=== PATIENT | female | born 1950 | race Caucasian/White ===

== ENCOUNTER 2019-02-16 20:48 | Inpatient (IN) | payer MEDICARE, OTHER ==
[~2019-02-16] VITALS: Ht 157.5 cm; Wt 71.2 kg
[2019-02-16] MEDS ORDERED: ACET325C5 PO (21:12)
[2019-02-16] MEDS ORDERED: BISA-79 PO (21:12)
[2019-02-16] MEDS ORDERED: ENOX40DI SQ (21:12)
[2019-02-16] MEDS ORDERED: MAG30ORA PO (21:12)
[2019-02-16] MEDS ORDERED: HYDR-3326 PO (21:12)
[2019-02-16] MEDS ORDERED: ASPI-1094 PO (21:12)
[2019-02-16] MEDS ORDERED: CHLO25CA22 PO (21:12)
[2019-02-16] MEDS ORDERED: TEMA7.5C PO (21:12)
[2019-02-16] MEDS ORDERED: FOLI1TAB16 PO (21:13)
[2019-02-16] MEDS ORDERED: ESCI10TA PO (21:13)
[2019-02-16] MEDS ORDERED: MULT-1045 PO (21:13)
[2019-02-16] MEDS ORDERED: ATOR10TA PO (21:13)
[2019-02-16] MEDS ORDERED: THIA100T74 PO (21:13)
[2019-02-16] MEDS ORDERED: AMLO10TA4 PO (21:13)
[2019-02-16] MEDS ORDERED: METO25TA6 PO (21:13)
--- NOTE | 2019-02-16 21:20 | NUR ---
Medically cleared by ERMD
[2019-02-16] MEDS ORDERED: ACETAMINOPHEN 325 MG TABLET PO PRN (21:45)
[2019-02-16] MEDS ORDERED: MAGNESIUM HYDROXIDE 30 ML LIQUID UDC PO PRN (21:45)
[2019-02-16] MEDS ORDERED: MAG HYDROX/AL HYDROX/SIMETH 30 ML LIQUID UDC PO PRN (21:45)
--- NOTE | 2019-02-16 23:00 | NUR ---
received to care at 0, from the emergency room, on a 72 hour hold for gravely disabled, a transfer from [facility]. according to the hold, she lives at a senior care home, and has been making vague suicidal statements. she denied a plan, but stated to staff at [facility] that she was desperate, and uncertain how she can go on. upon arrival, she was calm and cooperative. denied suicidal ideation. was oriented to person, and place (a hospital). she was receptive to interview, and was assited to bed. as of 2299, she appears asleep. no distress noted. will continue to monitor closely.
[2019-02-16 23:11] VITALS: BP 113/53
[2019-02-17 07:30] VITALS: BP 109/67
[2019-02-17] MEDS ORDERED: LORAZEPAM 0.5 MG TABLET PO PRN (08:00)
[2019-02-17] MEDS ORDERED: TEMAZEPAM 15 MG CAPSULE PO PRN (08:00)
[2019-02-17] MEDS ORDERED: ESCITALOPRAM OXALATE 10 MG TABLET PO SCH (09:00)
[2019-02-17] MEDS ORDERED: MAG HYDROX/AL HYDROX/SIMETH 30 ML LIQUID UDC PO SCH (10:15)
[2019-02-17] MEDS ORDERED: BISACODYL 5 MG TABLET.DR PO PRN (10:15)
[2019-02-17] MEDS ORDERED: Medication Not On Formulary EA (Acetaminophen (Tylenol) 650 MG) PO SCH (10:15)
[2019-02-17] MEDS: ESCITALOPRAM OXALATE 10 MG TABLET PO SCH (10:39)
[2019-02-17] MEDS: METOPROLOL TARTRATE 25 MG TABLET PO SCH ×2 (10:40→20:36)
[2019-02-17 16:04] VITALS: BP 126/64
--- NOTE | 2019-02-17 16:11 | NUR ---
Initial Discharge Instructions: Patient reports that she lives in a 3-bedroom house alone. However, per chart, patient lives in a Senior Community [[address], [address] [place] [address]; [phone]]. Patient reports that she would like to return home upon discharge. SW attempted to contact patient's daughter, Lynette ([phone]) to discuss discharge planning and confirm information; however, there was no answer. SW left a message for a return call. Patient may benefit from placement. GRAYSON will continue to collaborate with pt, family, and MD regarding most appropriate discharge plans for this patient. SW will form a safe and proper discharge.
--- NOTE | 2019-02-17 16:16 | NUR ---
Firearms Report: SW completed and submitted [employer] Firearms Report for 5150 DTS certification.
[2019-02-17] MEDS: HYDROCODONE/APAP 5-325MG TABLET PO PRN (18:47)
[2019-02-17 20:00] VITALS: BP 130/57
[2019-02-17] MEDS: QUETIAPINE FUMARATE 25 MG TABLET PO SCH (20:36)
[2019-02-17] MEDS: ATORVASTATIN 10 MG TABLET PO SCH (20:36)
[2019-02-18 07:30] VITALS: BP 121/49
[2019-02-18] MEDS: AMLODIPINE 10 MG TABLET PO SCH (09:00)
[2019-02-18] MEDS: METOPROLOL TARTRATE 25 MG TABLET PO SCH ×2 (09:00→20:22)
[2019-02-18] MEDS ORDERED: Medication Not On Formulary EA (Multivitamin (Multi-Vitamin Daily) 1 EACH) PO SCH (09:00)
[2019-02-18] MEDS: ASPIRIN 81 MG TAB.CHEW PO SCH (09:50)
[2019-02-18] MEDS: FOLIC ACID 1 MG TABLET PO SCH (09:50)
[2019-02-18] MEDS: ESCITALOPRAM OXALATE 10 MG TABLET PO SCH (09:50)
[2019-02-18] MEDS: MULTIVITAMINS,THERAPEUTIC TABLET PO SCH (09:51)
[2019-02-18] MEDS: ENOXAPARIN SODIUM 40 MG/0.4 ML DISP.SYRIN SQ SCH (10:05)
[2019-02-18] MEDS: THIAMINE HCL 100 MG TABLET PO SCH (10:11)
[2019-02-18 16:00] VITALS: BP 124/58
[2019-02-18] MEDS: ATORVASTATIN 10 MG TABLET PO SCH (20:21)
[2019-02-18] MEDS: QUETIAPINE FUMARATE 25 MG TABLET PO SCH (20:21)
[2019-02-18 20:23] VITALS: BP 128/67
--- NOTE | 2019-02-18 22:00 | NUR ---
received to care, visible at nurses station, appearing needy, and anxious. stated she was afraid somebody would harm her. she was reassured that she was safe. eventually she was placed at the nurses station, in a chair, where she felt safe. after taking her medications, she eventually went to bed, around 2129. as of 2199, she appears to be asleep. no distress noted.
--- NOTE | 2019-02-19 06:00 | NUR ---
slept 4.5 hours. continues to sleep, no distress noted.
[2019-02-19 07:30] VITALS: BP 109/51
[2019-02-19] MEDS: THIAMINE HCL 100 MG TABLET PO SCH (08:48)
[2019-02-19] MEDS: AMLODIPINE 10 MG TABLET PO SCH (08:48)
[2019-02-19] MEDS: FOLIC ACID 1 MG TABLET PO SCH (08:48)
[2019-02-19] MEDS: ASPIRIN 81 MG TAB.CHEW PO SCH (08:48)
[2019-02-19] MEDS: ESCITALOPRAM OXALATE 10 MG TABLET PO SCH (08:48)
[2019-02-19] MEDS: MULTIVITAMINS,THERAPEUTIC TABLET PO SCH (08:48)
[2019-02-19] MEDS: ENOXAPARIN SODIUM 40 MG/0.4 ML DISP.SYRIN SQ SCH (08:50)
[2019-02-19] MEDS: METOPROLOL TARTRATE 25 MG TABLET PO SCH ×2 (08:50→21:00)
--- NOTE | 2019-02-19 09:46 | NUR ---
Gps/Telecom Sales Consultant- Patient's daughter Lynette called, verbalized concerns regarding patient dc plan as well as her diagnosis, wants to hear from her psychiatrist. Basic informations provided. Lynette to provide copy of the DPOA. Dr Daniel to call call family as requested (Ylnette-daughter)
[2019-02-19 16:01] VITALS: BP 128/60
--- NOTE | 2019-02-19 20:00 | NUR ---
RECEIVED PATIENT IN HER ROOM IN BED. SHE IS NOTED AWAKE A/O X 3 CALM AND PLEASANT UPON APPROACHED. SHE IS ABLE TO AMBULATE WITH STEADY GAIT. UPON INTERVIEW, PATIENT DENIES SI, SHE STATED, "I JUST SAID THAT I WAS FEELING SUICIDAL BECAUSE I HATE THAT PLEASE, THEY TREATED ME BAD AND I THOUGHT IT WAS MY WAY OUT OF THAT HORRIBLE PLACE. I DON'T WANT TO GO BACK THERE". PATIENT IS ABLE TO CFS. PT WAS REASSURED FOR HER SAFETY. SHE IS ENCOURAGED TO VERBALIZED FEELINGS INSTEAD OF ACT OUT. SAFETY AND FALL PRECAUTION ARE IN PLACED. PATIENT IS REASSURES FOR HER SAFETY. WILL CONTINUE TO MONITOR.
[2019-02-19] MEDS: ATORVASTATIN 10 MG TABLET PO SCH (20:45)
[2019-02-19] MEDS: QUETIAPINE FUMARATE 25 MG TABLET PO SCH (20:45)
[2019-02-19 20:53] VITALS: BP 115/73
[2019-02-19] MEDS: HYDROCODONE/APAP 5-325MG TABLET PO PRN (21:01)
[2019-02-20 07:30] VITALS: BP 120/63
[2019-02-20] MEDS: ESCITALOPRAM OXALATE 10 MG TABLET PO SCH (09:29)
[2019-02-20] MEDS: ASPIRIN 81 MG TAB.CHEW PO SCH (09:30)
[2019-02-20] MEDS: FOLIC ACID 1 MG TABLET PO SCH (09:30)
[2019-02-20] MEDS: THIAMINE HCL 100 MG TABLET PO SCH (09:30)
[2019-02-20] MEDS: AMLODIPINE 10 MG TABLET PO SCH (09:30)
[2019-02-20] MEDS: MULTIVITAMINS,THERAPEUTIC TABLET PO SCH (09:30)
[2019-02-20] MEDS: METOPROLOL TARTRATE 25 MG TABLET PO SCH ×2 (09:31→20:11)
[2019-02-20] MEDS: ENOXAPARIN SODIUM 40 MG/0.4 ML DISP.SYRIN SQ SCH (09:33)
[2019-02-20 16:00] VITALS: BP 116/46
--- NOTE | 2019-02-20 18:27 | NUR ---
patient in bed in am then in am no c/o of pain son in in to visit pt appeared happier with eunice for mothers day, then other client came in room and took them patient up set and re directed patient to stay out of room continue to provide a safe environment
[2019-02-20] MEDS: ATORVASTATIN 10 MG TABLET PO SCH (20:10)
[2019-02-20] MEDS: QUETIAPINE FUMARATE 25 MG TABLET PO SCH (20:11)
[2019-02-20] MEDS: HYDROCODONE/APAP 5-325MG TABLET PO PRN (20:17)
[2019-02-20 20:36] VITALS: BP 101/50
[2019-02-21 07:30] VITALS: BP 123/54
[2019-02-21] MEDS: ESCITALOPRAM OXALATE 10 MG TABLET PO SCH (08:24)
[2019-02-21] MEDS: THIAMINE HCL 100 MG TABLET PO SCH (08:24)
[2019-02-21] MEDS: AMLODIPINE 10 MG TABLET PO SCH (08:24)
[2019-02-21] MEDS: FOLIC ACID 1 MG TABLET PO SCH (08:24)
[2019-02-21] MEDS: MULTIVITAMINS,THERAPEUTIC TABLET PO SCH (08:24)
[2019-02-21] MEDS: ASPIRIN 81 MG TAB.CHEW PO SCH (08:24)
[2019-02-21] MEDS: METOPROLOL TARTRATE 25 MG TABLET PO SCH ×2 (08:25→20:12)
[2019-02-21] MEDS: ENOXAPARIN SODIUM 40 MG/0.4 ML DISP.SYRIN SQ SCH (08:25)
[2019-02-21 13:00] VITALS: BP 115/52
--- NOTE | 2019-02-21 13:56 | NUR ---
Discharge planning: quarry worker called and spoke with patient daughter, Lynette [ ], regarding patient living situation and discharge plan. Per Lynette, patient has been living at a board & care/sober living since being discharged from [facility] inpatient addiction program in mid December. Per Lynette, patient has expressed not liking the board and care, but is unable to live on her own or provide adequate self-care. Prior to current living situation, patient was living in a mobile home alone. Per Lynette, she would like patient to either return to the board and care or be placed in a SNF for short-term placement. Lynette states that this verse writer can call Cassie [[phone]], board and care denture laboratory technician, to confirm if patient may return. quarry worker will speak with patient and present discharge options and then follow-up with Lynette tomorrow. quarry worker left voicemail with Cassie and awaiting call back.
--- NOTE | 2019-02-21 17:20 | NUR ---
SPOKE WITH FOR NEURO CONSULT , WILL CONTINUE MONITOR
[2019-02-21] MEDS: ATORVASTATIN 10 MG TABLET PO SCH (20:11)
[2019-02-21] MEDS: QUETIAPINE FUMARATE 25 MG TABLET PO SCH (20:11)
[2019-02-22 07:30] VITALS: BP 108/46
[2019-02-22] MEDS: MULTIVITAMINS,THERAPEUTIC TABLET PO SCH (08:44)
[2019-02-22] MEDS: FOLIC ACID 1 MG TABLET PO SCH (08:44)
[2019-02-22] MEDS: THIAMINE HCL 100 MG TABLET PO SCH (08:44)
[2019-02-22] MEDS: ESCITALOPRAM OXALATE 10 MG TABLET PO SCH (08:44)
[2019-02-22] MEDS: ASPIRIN 81 MG TAB.CHEW PO SCH (08:44)
[2019-02-22] MEDS: METOPROLOL TARTRATE 25 MG TABLET PO SCH ×2 (08:45→20:46)
[2019-02-22] MEDS: AMLODIPINE 10 MG TABLET PO SCH (08:45)
[2019-02-22] MEDS: ENOXAPARIN SODIUM 40 MG/0.4 ML DISP.SYRIN SQ SCH (09:00)
[2019-02-22] MEDS ORDERED: SWABABLE VALVE TRANSFER SET EA MC ONE (09:33)
[2019-02-22] MEDS ORDERED: IOHEXOL 350 100 ML INFUS..BTL ONE (09:33)
[2019-02-22] MEDS ORDERED: IV NORMAL SALINE 0 ML IV ONE (09:33)
[2019-02-22 12:31] LABS: *BILIRUBIN,URIN NEGATIVE (NEGATIVE); *BLOOD, URINE NEGATIVE (NEGATIVE); *CLARITY,URINE CLOUDY (CLEAR); *COLOR,URINE YELLOW (YELLOW); *KETONES,URINE NEGATIVE (NEGATIVE); *UROBILINOGEN,URINE 0.2 E.U./dl (NORMAL); LEUKOCYTE ESTERASE ,URINE 2+ (NEGATIVE); NITRITE, URINE POSITIVE (NEGATIVE); PH,URINE 5.5 (5.0-8.0); UGLUCOSE NEGATIVE (NEGATIVE)
[2019-02-22 12:46] LABS: BACTERIA,URINE MANY /HPF (NONE SEEN); SQUAMOUS EPITHELIAL CELL,UR MODERATE /HPF (NONE SEEN); WBC,URINE TNTC /HPF (0-3)
[2019-02-22 12:48] LABS: MUCUS,URINE MANY /LPF (0-FEW)
[2019-02-22] MEDS ORDERED: LEVOFLOXACIN 250 MG TABLET PO SCH (14:30)
--- NOTE | 2019-02-22 14:48 | NUR ---
UA result relayed to Max Foster NP.
[2019-02-22 15:08] VITALS: BP 112/74
[2019-02-22 19:54] VITALS: BP 117/50
[2019-02-22] MEDS: CEphaleXIN 500 MG CAPSULE PO SCH (20:47)
[2019-02-22] MEDS: QUETIAPINE FUMARATE 25 MG TABLET PO SCH (20:47)
[2019-02-22] MEDS: ATORVASTATIN 10 MG TABLET PO SCH (20:47)
[2019-02-23 08:00] VITALS: BP 121/54
[2019-02-23] MEDS: METOPROLOL TARTRATE 25 MG TABLET PO SCH ×2 (09:00→20:37)
[2019-02-23] MEDS: ENOXAPARIN SODIUM 40 MG/0.4 ML DISP.SYRIN SQ SCH (09:00)
[2019-02-23] MEDS: ESCITALOPRAM OXALATE 10 MG TABLET PO SCH (09:21)
[2019-02-23] MEDS: THIAMINE HCL 100 MG TABLET PO SCH (09:21)
[2019-02-23] MEDS: FOLIC ACID 1 MG TABLET PO SCH (09:21)
[2019-02-23] MEDS: MULTIVITAMINS,THERAPEUTIC TABLET PO SCH (09:21)
[2019-02-23] MEDS: AMLODIPINE 10 MG TABLET PO SCH (09:21)
[2019-02-23] MEDS: ASPIRIN 81 MG TAB.CHEW PO SCH (09:21)
[2019-02-23] MEDS: CEphaleXIN 500 MG CAPSULE PO SCH ×2 (09:22→20:36)
[2019-02-23 15:09] VITALS: BP 106/57
--- NOTE | 2019-02-23 16:22 | NUR ---
Discharge planning: exhaust worker and patient had family meeting with patient daughter, Lynette [[phone]], via telephone regarding patient discharge plan. Lynette facilitated conversation of wish for patient to return to board and care facility where patient will have caregiving and be in a safer environment. Patient was initially resistant to placement, but eventually agreed to go temporarily until her daughter can arrange for caregiving at her mobile home. exhaust worker provided family and patient with empathic listening and supportive counseling. A discharge plan has been set for patient to return to board and care and both parties [patient and Lynette] are agreeable to plan. exhaust worker will continue to follow-up with patient and family as needed.
[2019-02-23 20:24] VITALS: BP 125/78
[2019-02-23] MEDS: QUETIAPINE FUMARATE 25 MG TABLET PO SCH (20:36)
[2019-02-23] MEDS: ATORVASTATIN 10 MG TABLET PO SCH (20:40)
--- NOTE | 2019-02-23 22:30 | NUR ---
received to care, watching tv, pleasant upon approach. compliant with medications and staff direction. as of 2229, she appears to be falling asleep. no distress noted. will continue to monitor closely.
--- NOTE | 2019-02-24 07:10 | NUR ---
slept 5.5 hours. continues to sleep, no distress noted.
[2019-02-24 07:30] VITALS: BP 109/52
[2019-02-24] MEDS: ESCITALOPRAM OXALATE 10 MG TABLET PO SCH (08:58)
[2019-02-24] MEDS: FOLIC ACID 1 MG TABLET PO SCH (08:58)
[2019-02-24] MEDS: MULTIVITAMINS,THERAPEUTIC TABLET PO SCH (08:59)
[2019-02-24] MEDS: AMLODIPINE 10 MG TABLET PO SCH (08:59)
[2019-02-24] MEDS: THIAMINE HCL 100 MG TABLET PO SCH (08:59)
[2019-02-24] MEDS: ASPIRIN 81 MG TAB.CHEW PO SCH (08:59)
[2019-02-24] MEDS: CEphaleXIN 500 MG CAPSULE PO SCH (08:59)
[2019-02-24 09:00] VITALS: BP 109/52
[2019-02-24] MEDS: METOPROLOL TARTRATE 25 MG TABLET PO SCH (09:00)
[2019-02-24] MEDS: ENOXAPARIN SODIUM 40 MG/0.4 ML DISP.SYRIN SQ SCH (09:03)
--- NOTE | 2019-02-24 10:18 | NUR ---
Gps/Prescription Clerk Lenses- Patient was well informed of her discharge plan today.
--- NOTE | 2019-02-24 10:29 | NUR ---
DS NOTE: Patient will be discharged back to [facility] [[address] [place] [address]] and transportation will be provided by patient daughter, Lynette [[phone]], at 1:00pm. Patient is AxOx2-3, is aware of discharge plans, and denies suicidal ideations. sanitation worker cleaning equipment called and spoke with board and care night club manager, Cassie [[phone]], who states they are ready to accept patient today. Patient will follow-up with primary care physician, Dr. Mauricio Bishop [ [address], [place] [address]; ] on Saturday, March 09, 2019 at 3:00pm. Patient currently has no outpatient psychiatrist and has been provided with a list of Medicare-accepting psychiatrists. Patient has also been provided with a referral to [facility] [ [place] [address]; ] and has an intake appointment scheduled for February at 1:00pm to receive therapy and psychiatric services. Patient was also provided with outpatient mental health referrals for [facility] ( ), [facility]len[facility] Jackson ( ), and National Suicide Prevention Lifeline ( ). Patient has extensive ETOH abuse and has been provided with a brief substance abuse intervention and provided with resources including [facility] [[address] [place] [address]; Tel. ], [facility] [[address] [place] [address] ; Tel. ], [facility] [[address] [place] [address]; ; ], and Substance Abuse and Mental Health Services Administration (SAMA) National Helpline [8-225-895-HELP (1373)].
--- NOTE | 2019-02-24 13:38 | NUR ---
Gps/Whirley Operator- Patient's daughter in to lease picker patient. Reviewed medications/prescriptions, diet, safety emphasized, f/u with PMD verbalized understanding. All belongings given back to patient. In good spirit, no complaints noted. Discharged to Independent Living facility in [facility]. accompanied by her daughter.
== END 2019-02-24 13:50 | DRG 885 ==
LOC: ER 20:50 → GPS 21:27
PROVIDERS: ADMIT Psychiatry & Neurology Psychiatry; ATTEND Family Medicine
DX: F33.2 Major depressive disorder, recurrent severe without psychotic features (principal); N39.0 Urinary tract infection, site not specified; E03.9 Hypothyroidism, unspecified; E78.5 Hyperlipidemia, unspecified; Z79.899 Other long term (current) drug therapy; Z79.82 Long term (current) use of aspirin; B96.20 Unspecified Escherichia coli [E. coli] as the cause of diseases classified elsewhere; Z16.12 Extended spectrum beta lactamase (ESBL) resistance; E66.9 Obesity, unspecified; Z68.28 Body mass index [BMI] 28.0-28.9, adult; Z71.3 Dietary counseling and surveillance; Z86.73 Personal history of transient ischemic attack (TIA), and cerebral infarction without residual deficits; I10 Essential (primary) hypertension
CPT/HCPCS: 36415; 70450; 84443; 87077; 87086; 93005; 97110; 97530; A4663; J1650; J7050; Q9967